=== PATIENT | female | born 1990 | race Native Hawaiian/Other Pacific Islander ===

== ENCOUNTER 2016-10-06 10:17 | Emergency (ER) | payer SELFPAY ==
--- NOTE | 2016-10-06 11:17 | PD ---
HPI Chief Complaint Contractions Date Seen: Oct 06, 2016 Travel History International Travel<30 Days: Yes (3 weeks ago to [place]) Contact w/Intl Traveler<30Days: [place] Country Traveled to: [facility] Known Affected Area: No History of Present Illness HPI Patient is a 25-year-old at 40/0 weeks gestation that presents to the [place] [facility] ED with a chief complaint of contractions that occur every 2 hours and last for 5-10 minutes each time. She denies loss of fluid, vaginal bleeding , abnormal vaginal discharge. She endorses positive movements. Patient states that she also has dysuria and developed a headache this morning on the right side of her face. [facility] All labs have been negative or within normal limits. Her blood pressure at clinic this morning was 145/86. Notably, her blood pressure in the ED today is within normal limits at 129/85. Patient is GBS negative. She prefers a female OB hospitalist due to her mostly in christianity. Para: 0 : 2 Miscarriage: 1 : 0 History Past Medical History Medical History: Denies Significant Hx Obstetric History Obstetric History - -1 miscarriage at 4 weeks Past Surgical History Surgical History: No Previous Surgery Family History Narrative Family History Mom has hypertension and diabetes Social History Alcohol Use: No Tobacco Use: No Substance Abuse: No Allergies-Medications (Allergen,Severity, Reaction): Coded Allergies: No Known Allergies (Unverified , 10/06/16) Home Meds No Active Prescriptions or Reported Meds Review of Systems General / Constitutional: No: Fever, Chills Eyes: No: Blurred Vision, Visual changes HENT: Headaches Cardiovascular: No: Chest Pain or Discomfort Respiratory: No: Short of Breath Gastrointestinal: No: Nausea, Vomiting, Diarrhea Genitourinary: No: Dysuria, Discharge, Vaginal Bleeding Musculoskeletal: Edema (minimal), No: Weakness Skin: No Rash Physical Exam Narrative GENERAL: Well-nourished, well-developed patient. SKIN: Warm and dry. HEAD: Normocephalic and atraumatic. EYES: No scleral icterus. No injection or drainage. ENT: No nasal drainage noted. Mucous membranes pink. Airway patent. NECK: Supple, trachea midline. No JVD. CARDIOVASCULAR: Regular rate and rhythm without murmurs, gallops, or rubs. RESPIRATORY: Breath sounds equal bilaterally. No accessory muscle use. BREASTS: Bilateral exam showed no masses , no retractions, no nipple discharge. ABDOMEN/GI: Abdomen soft, non-tender, bowel sounds present, no rebound, no guarding Gravid to 40 weeks size Fundal Height: 40cm GENITOURINARY: External Genitalia: intact and normal in appearance Cervix: Posterior Dilatation:2-3cm Effacement: 60% Station: -3 Presentation: Cephalic Membranes: Intact Uterine Contractions: Minimal, infrequent FHT's: Category: 1 Baseline: 145 Reactive: Yes, up to 150 Variability: Moderate Decels: None EXTREMITIES: No cyanosis or edema. BACK: Nontender without obvious deformity. No CVA tenderness. NEUROLOGICAL: Awake and alert. Motor and sensory grossly within normal limits. Five out of 5 muscle strength in all muscle groups. Normal speech. Data Data Vital Signs Reviewed: Yes Orders Vital Signs (Adult) .ON ADMISSION (10/06/16 10:57) ^ Labor Status (10/06/16 10:57) ^ Non Stress Test (10/06/16 10:57) ^ Hydration (10/06/16 10:57) Urinalysis - C+S If Indicated (10/06/16 11:13) MDM Medical Record Reviewed: Yes Interpretation(s) 25 at 40/0 presents with chief complaint of contractions, not in active labor. Plan Intrauterine -Cephalic position - tracing category 1, reassuring -Infrequent contractions on monitor -Plan is to discharge patient home -Labor precautions, patient to return to the ED when contractions are frequent -We will plan to induce on October 12 -Female OB hospitalist will be park recreation manager that day Diagnosis Diagnosis: Primary Impression: False labor after 37 weeks of gestation without delivery Disposition: DISCHARGE HOME Condition: Stable Scripts No Active Prescriptions or Reported Meds Shannon Maya MD R1 Oct 06, 2016 11:17
--- NOTE | 2016-10-06 11:34 | PD ---
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 [facility]. She denies bleeding or rupture the membranes heart rate tracing is reactive she is nish irregularly. Para: 0 : 2 History Social History Narrative Social History Patient is Catholic and does not want male examiners her delivery possible Alcohol Use: No Tobacco Use: No Substance Abuse: No Allergies-Medications (Allergen,Severity, Reaction): Coded Allergies: No Known Allergies (Unverified , 10/06/16) Home Meds No Active Prescriptions or Reported Meds Physical Exam Narrative GENERAL: Well-nourished, well-developed patient. SKIN: Warm and dry. HEAD: Normocephalic and atraumatic. EYES: No scleral icterus. No injection or drainage. ENT: No nasal drainage noted. Mucous membranes pink. Airway patent. NECK: Supple, trachea midline. No JVD. CARDIOVASCULAR: Regular rate and rhythm without murmurs, gallops, or rubs. RESPIRATORY: Breath sounds equal bilaterally. No accessory muscle use. BREASTS: Bilateral exam showed no masses , no retractions, no nipple discharge. ABDOMEN/GI: Abdomen soft, non-tender, bowel sounds present, no rebound, no guarding Gravid to [-38] weeks size Fundal Height: [38-] GENITOURINARY: External Genitalia: intact and normal in appearance BUS glands: [-] Cervix: [-] Dilatation: [-2-3 [no change] Effacement: [60-] Station: [-3] very high Presentation: [vtx by US today-] Membranes: [intact ] Uterine Contractions: [-irreg] FHT's: Category: [1-] Baseline: [-133] Reactive: [-yes] Variability: [mod-] Decels: [none-] EXTREMITIES: No cyanosis or edema. BACK: Nontender without obvious deformity. No CVA tenderness. NEUROLOGICAL: Awake and alert. Motor and sensory grossly within normal limits. Five out of 5 muscle strength in all muscle groups. Normal speech. Data Data Orders Vital Signs (Adult) .ON ADMISSION (10/06/16 10:57) ^ Labor Status (10/06/16 10:57) ^ Non Stress Test (10/06/16 10:57) ^ Hydration (10/06/16 10:57) Urinalysis - C+S If Indicated (10/06/16 11:13) MDM Interpretation(s) This patient is a 25-year-old Catholic female G 2 P0 at 40 wks EDC 10/06 who presents for evaluation contractions. The patient's nish irregularly heart rate tracing is reactive cervix is essentially unchanged from last week 2-3/ 60% and -3, vertex by ultrasound today. She is not in labor at this time will discharge home to return for worsening symptoms or signs. We'll schedule her induction for 1 week away and will schedule that with Dr. Webster female physician so that the patient will feel more comfortable Plan Plan to schedule patient for induction in 1 week with female physician she certainly can return sooner if labor ensues or she rupture the membranes has other complication. Diagnosis Diagnosis: Primary Impression: False labor after 37 weeks of gestation without delivery Disposition: 01 DISCHARGE HOME Condition: Stable Scripts No Active Prescriptions or Reported Meds Darvin Byrnes II, MD Oct 06, 2016 11:34
== END 2016-10-06 11:51 | disposition home or self-care (01) ==
LOC: HOBED 10:17
DX: O47.1 False labor at or after 37 completed weeks of gestation (principal); Z3A.40 40 weeks gestation of pregnancy
CPT/HCPCS: 99283

== ENCOUNTER 2016-10-12 07:12 | Inpatient (IN) | payer SELFPAY ==
[2016-10-12] VITALS (67 sets, daily range): BP systolic 98–158; BP diastolic 49–107; PULSE 66–119; RESP 18; TEMP 97.7–98.5; O2SAT 99–100
[2016-10-12] MEDS ORDERED: LIDOCAINE HCL 1% 50 ML VIAL I-DERMAL PRN (08:15)
[2016-10-12] MEDS ORDERED: CITRIC ACID-SODIUM CITRATE LIQ 30 ML UDC PO SCH (08:15)
[2016-10-12] MEDS ORDERED: LIDOCAINE HCL 1% 50 ML VIAL INFIL PRN (08:15)
[2016-10-12] MEDS ORDERED: MINERAL OIL 10 ML VIAL TOPICAL PRN (08:15)
--- NOTE | 2016-10-12 08:17 | HHI.HP ---
History & Physical H&P OB ED Note (Detail) Patient Name: Yodit Power Unit Number: [id number] Date of : 1990 Patient Status: Departed Emergency Room Attending Doctor: Darvin Byrnes II, MD HPI HPI Chief Complaint Contractions Date Seen: Oct 12, 2016 Travel History International Travel<30 Days: No Contact w/Intl Traveler<30Days: No Known Affected Area: No History of Present Illness HPI Labor And Delivery Registered Nurse 25-year-old Rastafari female at 40 weeks presents for postdates induction. [facility]. She denies bleeding or rupture the membranes heart rate tracing is reactive she is nish irregularly. Para: 0 : 2 History (Limited) History Social History Narrative Social History Patient is Rastafari and does not want male examiners her delivery Dr. goldstein Alcohol Use: No Tobacco Use: No Substance Abuse: No Allergies-Medications Allergies-Medications (Allergen,Severity, Reaction): Coded Allergies: No Known Allergies (Unverified , 10/06/16) Home Meds No Active Prescriptions or Reported Meds ROS Review of Systems Physical Exam Physical Exam Narrative GENERAL: Well-nourished, well-developed patient. SKIN: Warm and dry. HEAD: Normocephalic and atraumatic. EYES: No scleral icterus. No injection or drainage. ENT: No nasal drainage noted. Mucous membranes pink. Airway patent. NECK: Supple, trachea midline. No JVD. CARDIOVASCULAR: Regular rate and rhythm without murmurs, gallops, or rubs. RESPIRATORY: Breath sounds equal bilaterally. No accessory muscle use. BREASTS: Bilateral exam showed no masses , no retractions, no nipple discharge. ABDOMEN/GI: Abdomen soft, non-tender, bowel sounds present, no rebound, no guarding Gravid to [-38] weeks size Fundal Height: [38-] GENITOURINARY: External Genitalia: intact and normal in appearance BUS glands: [-] Cervix: [-] Dilatation: [-2-3 [no change] Effacement: [60-] Station: [-3] very high Presentation: [vtx by US today-] Membranes: [intact ] Uterine Contractions: [-irreg] FHT's: Category: [1-] Baseline: [-133] Reactive: [-yes] Variability: [mod-] Decels: [none-] EXTREMITIES: No cyanosis or edema. BACK: Nontender without obvious deformity. No CVA tenderness. NEUROLOGICAL: Awake and alert. Motor and sensory grossly within normal limits. Five out of 5 muscle strength in all muscle groups. Normal speech. Data Data Data Orders Vital Signs (Adult) .ON ADMISSION (10/06/16 10:57) ^ Labor Status (10/06/16 10:57) ^ Non Stress Test (10/06/16 10:57) ^ Hydration (10/06/16 10:57) Urinalysis - C+S If Indicated (10/06/16 11:13) MDM MDM Interpretation(s) This patient is a 25-year-old Rastafari female G 2 P0 at 41 wks tomorrow EDC 10/06 who presents for postdates induction. The patient's nish irregularly heart rate tracing is reactive cervix is essentially unchanged from last week 2-3/ 60% and -3, vertex by ultrasound today. She is not in labor at this time Plan Plan to schedule patient for induction with female physician Diagnosis Diagnosis: Primary Impression: Postdates 41 wks tomorrow Disposition: Admit for induction Condition: Stable Scripts No Active Prescriptions or Reported Meds Darvin Byrnes II, MD Oct 06, 2016 11:34 Darvin Byrnes II, MD Oct 12, 2016 08:17
[2016-10-12 08:20] LABS: AUTOMATED NEUTROPHIL # 5.3 TH/MM3 (1.8-7.7); BASOPHIL % 0.4 % (0.0-2.0); EOSINOPHIL # 0.1 TH/MM3 (0-0.4); EOSINOPHIL % 1.5 % (0.0-4.0); HEMATOCRIT 35.7 % (35.0-46.0); LYMPH % 22.6 % (9.0-44.0); LYMPHOCYTE # 1.7 TH/MM3 (1.0-4.8); MEAN CELL VOLUME 76.8 FL (80.0-100.0); MEAN CORPUSCULAR HEMOGLOBIN 24.5 PG (27.0-34.0); MEAN CORPUSCULAR HGB CONC 31.9 % (32.0-36.0); MONO % 6.1 % (0.0-8.0); NEUT % 69.4 % (16.0-70.0); PLATELET COUNT 105 TH/MM3 (150-450); RED BLOOD COUNT 4.65 MIL/MM3 (4.00-5.30); RED CELL DISTRIBUTION WIDTH 18.2 % (11.6-17.2); WHITE BLOOD COUNT 7.7 TH/MM3 (4.0-11.0)
[2016-10-12 08:23] LABS: HEMO FLAGS AUTO DIFF
[2016-10-12 08:31] LABS: BACTERIA, URINE OCC /hpf; BLOOD, URINE NEG (NEG); GLUCOSE,URINE NEG (NEG); KETONE, URINE NEG (NEG); MUCUS URINE FEW /lpf (OCC); NITRITE,URINE NEG (NEG); PH, URINE 5.5 (5.0-8.5); SQUAMOUS EPITHELIAL CELL URINE 26 /hpf (0-5); URINE COLOR YELLOW (YELLW/STRAW)
[2016-10-12 08:34] LABS: COMMENT (UR) CULT NOT INDICATED; CULTURE IF INDICATED CULT NOT INDICATED
--- NOTE | 2016-10-12 08:37 | HHI.HP ---
HPI Chief Complaint Induction for labor Date Seen: Oct 12, 2016 Travel History International Travel<30 Days: Yes (4 weeks ago to [facility]) Contact w/Intl Traveler<30Days: Yes Name of Country Traveled to: [facility] Known Affected Area: No History of Present Illness HPI Patient is a 25-year-old at 40/6 weeks gestation that presents to the [place] [facility] ED for a scheduled induction. Patient states that she has been having contractions for the last 3 days that became worse at 10 PM last night. The contractions have been coming every 10 minutes. She denies loss of fluid, vaginal bleeding, and endorses positive movement. [facility] with [facility]. All labs have been negative or within normal limits. Patient is GBS negative. She prefers a female OB hospitalist due to her Jainism mandaen. Patient is considering an epidural. Para: 0 : 2 Miscarriage: 1 : 0 History Past Medical History Medical History: Denies Significant Hx Obstetric History Obstetric History - -1 miscarriage at 4 weeks Past Surgical History Surgical History: No Previous Surgery Family History Narrative Family History Mom has hypertension and diabetes Social History Alcohol Use: No Tobacco Use: No Substance Abuse: No Allergies-Medications (Allergen,Severity, Reaction): Coded Allergies: No Known Allergies (Unverified , 10/06/16) Home Meds No Active Prescriptions or Reported Meds Review of Systems General / Constitutional: No: Fever, Chills Eyes: No: Blurred Vision, Visual changes HENT: No: Headaches, Lightheadedness Cardiovascular: No: Chest Pain or Discomfort Respiratory: No: Short of Breath Gastrointestinal: Nausea, No: Vomiting, Diarrhea Genitourinary: Dysuria Musculoskeletal: No: Weakness Skin: Rash (skin mottling) Neurologic: No: Weakness, Headache Physical Exam Narrative GENERAL: Well-nourished, well-developed patient. SKIN: Warm and dry. HEAD: Normocephalic and atraumatic. EYES: No scleral icterus. No injection or drainage. ENT: No nasal drainage noted. Mucous membranes pink. Airway patent. NECK: Supple, trachea midline. No JVD. CARDIOVASCULAR: Regular rate and rhythm without murmurs, gallops, or rubs. RESPIRATORY: Breath sounds equal bilaterally. No accessory muscle use. ABDOMEN/GI: Abdomen soft, non-tender, bowel sounds present, no rebound, no guarding Gravid to 41 weeks size GENITOURINARY: External Genitalia: intact and normal in appearance Cervix: Posterior Dilatation: 3cm Effacement: 70% Station: -3 Presentation: Cephalic Membranes: intact Uterine Contractions: present but infrequent FHT's: Category: I Baseline: 120 Reactive: Yes, up to 145 Variability: Moderate Decels: None EXTREMITIES: No cyanosis or edema. BACK: Nontender without obvious deformity. No CVA tenderness. NEUROLOGICAL: Awake and alert. Motor and sensory grossly within normal limits. Five out of 5 muscle strength in all muscle groups. Normal speech. Data Data Vital Signs Reviewed: Yes Orders Admit To Inpatient (10/12/16 ) Vital Signs (Adult) .Per protocol (10/12/16 08:11) Heart (10/12/16 08:11) Amnioinfusion (10/12/16 08:11) Urinary Catheter Management .ONCE (10/12/16 08:11) Diet Liquid (10/12/16 Breakfast) Lactated Ringer's 1000 Ml Inj (Lr 1000 M (10/12/16 08:11) Lactated Ringer's 1000 Ml Inj (Lr 1000 M (10/12/16 08:11) Sodium Chlorid 0.9% 500 Ml Inj (Ns 500 M (10/12/16 08:15) Sodium Chlor 0.9% 1000 Ml Inj (Ns 1000 M (10/12/16 08:31) Lidocaine 1% Inj (50 Ml) (Xylocaine 1% I (10/12/16 08:15) Citric Acid-Sodium Citrate Liq (Bicitra (10/12/16 08:15) Fentanyl Inj (Fentanyl Inj) (10/12/16 08:15) Fentanyl Inj (Fentanyl Inj) (10/12/16 08:15) Complete Blood Count With Diff (10/12/16 08:11) Hold Clot (10/12/16 08:11) Abo/Rh Blood Type (10/12/16 08:11) Urinalysis - C+S If Indicated (10/12/16 08:11) Resp Oxygen Non Rebreathe Mask (10/12/16 ) ^ Epidural / Intrathecal Infus (10/12/16 08:11) Oxytocin 30 Units-500ml Premix (Pitocin (10/12/16 08:15) Lidocaine 1% Inj (50 Ml) (Xylocaine 1% I (10/12/16 08:15) Light Mineral Oil (Muri-Lube Oil) (10/12/16 08:15) Specimen To Be Collected PRN (10/12/16 08:11) ^ Non Stress Test (10/12/16 08:12) Response To Medication .Post New Med Administration, Reaction (10/12/16 08:12) ^ Discontinue Medication (10/12/16 08:12) Oxytocin 30 Units-500ml Premix (Pitocin (10/12/16 08:15) Labs Laboratory Tests Test 10/12/16 08:00 White Blood Count 7.7 Red Blood Count 4.65 Hemoglobin 11.4 Hematocrit 35.7 Mean Corpuscular Volume 76.8 Mean Corpuscular Hemoglobin 24.5 Mean Corpuscular Hemoglobin 31.9 Concent Red Cell Distribution Width 18.2 Platelet Count 105 Mean Platelet Volume 11.7 Neutrophils (%) (Auto) 69.4 Lymphocytes (%) (Auto) 22.6 Monocytes (%) (Auto) 6.1 Eosinophils (%) (Auto) 1.5 Basophils (%) (Auto) 0.4 Neutrophils # (Auto) 5.3 Lymphocytes # (Auto) 1.7 Monocytes # (Auto) 0.5 Eosinophils # (Auto) 0.1 Basophils # (Auto) 0.0 CBC Comment AUTO DIFF Assessment/Plan Assessment and Plan 25-year-old at 40/6 weeks gestation presents for induction of labor, currently having contractions. GBS negative Intrauterine - tracing category 1 - reassuring -Cervical exam: 3 cm/70%/-3 -Admit for induction -Start Pitocin -Continuous tracing -Continue routine antepartum care -Expect vaginal delivery Discharge Planning Depending on labor course, in the next 2-3 days EkoShannon MD R1 Oct 12, 2016 08:37
[2016-10-12 08:52] LABS: PLATELET ESTIMATE SMEAR LOW (NORMAL); PLATELET MORPHOLOGY ENLARGED (NORMAL); SCAN/DIFF AUTO DIFF CONFIRMED
[2016-10-12] MEDS ORDERED: LACTATED RINGER'S 1000 ML INJ 1,000 ML IV SCH (09:00)
[2016-10-12] MEDS ORDERED: OXYTOCIN 30 UNITS-500ML PREMIX 500 ML IV SCH (09:00)
[2016-10-12] MEDS ORDERED: LACTATED RINGER'S 1000 ML INJ 1,000 ML IV PRN (09:00)
[2016-10-12] MEDS ORDERED: SODIUM CHLORID 0.9% 500 ML INJ 500 ML IV PRN (09:00)
[2016-10-12] MEDS ORDERED: SODIUM CHLOR 0.9% 1000 ML INJ 1,000 ML IV PRN (09:00)
[2016-10-12] MEDS ORDERED: OXYTOCIN 30 UNITS-500ML PREMIX 500 ML IV ONE (09:00)
[2016-10-12] MEDS ORDERED: fentaNYL 2MCG-BUPIV 0.125% INJ 100 ML ONE ×2 (12:25→19:47)
[2016-10-12] MEDS ORDERED: ePHEDrine/NS 25 MG/5 ML SYR ONE (13:23)
--- NOTE | 2016-10-12 15:06 | PD.LABORPN ---
Subjective Subjective 25 @40/6 weeks. Doing well. AROM performed. (Eko,Shannon U R1) Objective Vital Signs Vital Signs Date Time Temp Pulse Resp B/P Pulse Ox O2 Delivery O2 Flow Rate FiO2 10/12/16 14:30 103 118/74 10/12/16 14:15 113 108/69 10/12/16 14:00 119 108/52 10/12/16 13:45 92 109/63 10/12/16 13:30 96 119/65 10/12/16 13:26 66 123/68 10/12/16 13:25 87 99 10/12/16 13:24 96 118/53 10/12/16 13:21 97 115/49 10/12/16 13:20 109 100 10/12/16 13:19 101 111/63 10/12/16 13:16 107 114/61 10/12/16 13:15 100 100 10/12/16 13:13 90 127/71 10/12/16 13:10 92 10/12/16 13:10 97.7 89 133/70 100 10/12/16 13:10 18 10/12/16 13:07 89 137/84 10/12/16 13:05 82 100 10/12/16 13:02 91 143/91 10/12/16 13:00 84 10/12/16 13:00 99 10/12/16 13:00 89 142/90 10/12/16 12:35 87 147/93 10/12/16 12:31 75 158/107 10/12/16 12:00 76 144/94 10/12/16 11:50 73 145/100 10/12/16 11:30 71 138/94 10/12/16 11:15 80 145/87 10/12/16 11:01 77 144/89 10/12/16 10:30 85 124/93 10/12/16 10:15 74 139/90 10/12/16 10:04 73 134/87 10/12/16 10:00 74 129/98 10/12/16 09:46 79 136/93 10/12/16 09:19 77 133/90 10/12/16 09:05 86 135/81 Objective Pelvic Exam: Cervix: mid position Dilatation: 4cm Effacement: 90% Station: -1 Presentation: vertex Membranes: ruptured Uterine Contractions: moderate , Q2-3 mins FHT's: Category: II Baseline: 130 Reactive: up to 150 Variability: Moderate Decels: 1-2 lates (Shannon Maya MD R1) Assessment/Plan Problem List: (1) Post term over 40 weeks Assessment and Plan Intrauterine -Doing well - tracing - 1-2 late decels, baseline 130, reactive up to 150 -On Pitocin at 18- contractions Q2-3 minutes - will shut off for 20 minutes and restart low -Fluid bolus and repositioning performed -Continue to monitor -Cervical exam: 4cm/90%/-1 -AROM performed -IUPC placed -Epidural in place -Continue antepartum care -Expect vaginal delivery (Shannon Maya MD R1) Assessment and Plan Pt seen and examined with resident AROM, scant clear fluid, IUPC placed cat 2 tracing, monitor closely (Yandel Sánchez MD) Shannon Maya MD R1 Oct 12, 2016 15:06 Yandel Sánchez MD Oct 12, 2016 15:31
[2016-10-13] VITALS (17 sets, daily range): BP systolic 119–144; BP diastolic 65–93; PULSE 83–116; RESP 18–20; TEMP 98.1–99.1
--- NOTE | 2016-10-13 02:42 | PD.OB.DELI ---
Delivery Date: Oct 13, 2016 Anesthesia: Epidural Episiotomy: None Vaginal Delivery: Normal Presentation: Other (JAILYN) Nuchal Cord: None Delayed cord clamping (45 sec): Yes Infant: Male One Minute : 8 Five Minute : 9 Weight: 3520 Placenta: Spontaneous delivery Laceration: Perineal laceration, 2 deg Additional Information EBL 300 Yandel Sánchez MD Oct 13, 2016 02:42
[2016-10-13] MEDS ORDERED: ALUMINUM/MAGNESIUM/SIMETH 30 ML CUP PO PRN (02:45)
[2016-10-13] MEDS ORDERED: ONDANSETRON ODT 4 MG TAB PO PRN (02:45)
[2016-10-13] MEDS ORDERED: DOCUSATE SODIUM 50 MG/SENNA 8.6 MG TAB PO PRN (02:45)
[2016-10-13] MEDS ORDERED: ACETAMINOPHEN 325 MG TAB PO PRN (02:45)
[2016-10-13] MEDS ORDERED: SODIUM CHLORIDE 0.9% FLUSH 10 ML FLUSH IV FLUSH PRN (02:45)
[2016-10-13] MEDS ORDERED: ZOLPIDEM TARTRATE 5 MG TAB PO PRN (02:45)
[2016-10-13] MEDS ORDERED: OXYTOCIN 30 UNITS-500ML PREMIX 500 ML ONE (02:54)
[2016-10-13] MEDS: WITCH HAZEL 50%/GLYCERIN 12.5% 40 PAD JAR TOPICAL PRN (05:57)
[2016-10-13] MEDS: BENZOCAINE 20% TOPICAL SPRAY 60 ML CAN TOPICAL PRN (05:57)
--- NOTE | 2016-10-13 07:18 | HHI.OB ---
Subjective Post Day: 0 Remarks day #0. AFVSS overnight. Pain well-controlled. Lochia more than a period. Denies dysuria. She is feeding the baby via by breast milk. Appetite good. No nausea or vomiting. Positive flatus. No bowel movement. Ambulating well. Denies calf pain, shortness of breath, or cough. Otherwise, she is doing well this morning and has no other complaints. (Eko,Shannon U R1 ) Objective Vitals/I&O Vital Signs Date Time Temp Pulse Resp B/P Pulse Ox O2 Delivery O2 Flow Rate FiO2 10/13/16 03:41 113 136/79 10/13/16 03:40 18 10/13/16 03:24 105 144/93 10/13/16 03:23 18 10/13/16 03:06 110 133/65 10/13/16 03:05 18 10/13/16 02:51 108 120/83 10/13/16 02:50 18 10/13/16 02:38 18 10/13/16 02:37 116 119/78 10/13/16 01:49 89 10/13/16 01:49 119/74 10/13/16 01:48 18 10/13/16 01:12 99.1 10/13/16 00:40 18 10/13/16 00:40 83 127/78 10/12/16 23:57 87 120/71 10/12/16 23:55 18 10/12/16 23:01 98 18 135/78 10/12/16 22:41 93 129/83 10/12/16 22:40 18 10/12/16 22:13 18 10/12/16 22:12 95 126/81 10/12/16 21:41 102 131/79 10/12/16 21:40 18 10/12/16 21:18 90 18 134/78 10/12/16 20:56 83 128/76 10/12/16 20:55 98.5 18 10/12/16 20:20 91 128/80 10/12/16 20:20 18 10/12/16 19:53 84 18 124/79 10/12/16 19:20 95 109/84 10/12/16 19:19 97.8 18 10/12/16 18:46 91 113/61 10/12/16 18:31 76 125/78 10/12/16 18:15 89 122/77 10/12/16 18:00 90 107/71 10/12/16 17:45 78 116/70 10/12/16 17:30 79 98/65 10/12/16 17:16 72 109/66 10/12/16 17:01 85 108/51 10/12/16 17:00 97.7 18 10/12/16 16:46 73 99/52 10/12/16 16:31 75 106/52 10/12/16 16:16 66 100/55 10/12/16 16:01 73 120/77 10/12/16 15:46 73 127/75 10/12/16 15:31 74 117/81 10/12/16 15:16 85 110/67 10/12/16 15:01 86 112/61 10/12/16 14:40 88 120/71 10/12/16 14:30 103 118/74 10/12/16 14:15 113 108/69 10/12/16 14:00 119 108/52 10/12/16 13:45 92 109/63 10/12/16 13:30 96 119/65 10/12/16 13:26 66 123/68 10/12/16 13:25 87 99 10/12/16 13:24 96 118/53 10/12/16 13:21 97 115/49 10/12/16 13:20 109 100 10/12/16 13:19 101 111/63 10/12/16 13:16 107 114/61 10/12/16 13:15 100 100 10/12/16 13:13 90 127/71 10/12/16 13:10 92 10/12/16 13:10 97.7 89 133/70 100 10/12/16 13:10 18 10/12/16 13:07 89 137/84 10/12/16 13:05 82 100 10/12/16 13:02 91 143/91 10/12/16 13:00 84 10/12/16 13:00 99 10/12/16 13:00 89 142/90 10/12/16 12:35 87 147/93 10/12/16 12:31 75 158/107 10/12/16 12:00 76 144/94 10/12/16 11:50 73 145/100 10/12/16 11:30 71 138/94 10/12/16 11:15 80 145/87 10/12/16 11:01 77 144/89 10/12/16 10:30 85 124/93 10/12/16 10:15 74 139/90 10/12/16 10:04 73 134/87 10/12/16 10:00 74 129/98 10/12/16 09:46 79 136/93 10/12/16 09:19 77 133/90 10/12/16 09:05 86 135/81 Objective Remarks GENERAL: Well-nourished, well-developed patient. CARDIOVASCULAR: Regular rate and rhythm without murmurs, gallops, or rubs. RESPIRATORY: Breath sounds equal bilaterally. No accessory muscle use. ABDOMEN/GI: Abdomen soft, non-tender. Fundus: Firm, non-tender at umbilicus. GENITOURINARY: Light to moderate bleeding. EXTREMITIES: No cyanosis or edema, non-tender, without signs of DVT. Medications and IVs Current Medications Medications (Trade) Dose Ordered Sig/Matias Route Start Time Stop Time Status Last Admin (NS Flush) 2 ml BID IV FLUSH 10/13/16 09:00 (NS Flush) 2 ml UNSCH PRN IV FLUSH 10/13/16 02:45 (Tylenol) 650 mg Q4H PRN PO 10/13/16 02:45 (Motrin) 600 mg Q6H PRN PO 10/13/16 02:45 (Percocet 5-325 Mg) 1 tab Q4H PRN PO 10/13/16 02:45 (Percocet 5-325 Mg) 2 tab Q4H PRN PO 10/13/16 02:45 (Americaine 20% Top Spr) 1 spray Q4H PRN TOPICAL 10/13/16 02:45 10/13/16 05:57 (Tucks Pads) 1 applic QID PRN TOPICAL 10/13/16 02:45 10/13/16 05:57 (Vanessa-Colace) 2 tab Q12H PRN PO 10/13/16 02:45 (Ambien) 5 mg HS PRN PO 10/13/16 02:45 (M-M-R Ii Inj) 0.5 ml ONCE ONCE SQ 10/13/16 16:00 10/13/16 16:01 (Boostrix Inj) 0.5 ml ONCE ONCE IM 10/13/16 16:00 10/13/16 16:01 (Mag-Al Plus Susp Liq) 15 ml Q8H PRN PO 10/13/16 02:45 (Zofran Odt) 4 mg Q6H PRN PO 10/13/16 02:45 (Shannon Maya MD R1) Assessment/Plan Problem List: (1) Post term over 40 weeks Assessment and Plan 25-year-old who is PPD0 s/p induced vaginal delivery -Continue routine care -Motrin PRN for pain -Pericolase PRN for constipation -Encouraged OOB. Advised pelvic rest for 6 wks -Will need a follow-up appointment within 6 wks -Re: ctrl - patient is undecided -D/c in 1-[address] Sánchez Discharge Planning Anticipate discharge in 1-2 days (Shannon Maya MD R1) Attending Attestation The exam, history, and the medical decision-making described in the above note were completed with the assistance of the resident provider. I reviewed and agree with the findings presented. I attest that I had a [id number] encounter with the patient on the same day, and personally performed and documented my assessment and findings in the medical record. (Yandel Sánchez MD) Shannon Maya MD R1 Oct 13, 2016 07:18 Yandel Sánchez MD Oct 13, 2016 11:10
[2016-10-13] MEDS ORDERED: SODIUM CHLORIDE 0.9% FLUSH 10 ML FLUSH IV FLUSH SCH (09:00)
[2016-10-13] MEDS: oxyCODONE/ACETAMINOPHEN 5 MG/325 MG TAB PO PRN ×2 (11:27→17:43)
[2016-10-13] MEDS: IBUPROFEN 600 MG TAB PO PRN ×2 (11:28→17:43)
[2016-10-13] MEDS ORDERED: DIPHTH/TETANUS/ACEL PERTUSSIS (BOOSTER) 0.5 ML VIAL/PFS IM ONE (16:00)
[2016-10-13] MEDS ORDERED: MEASLES, MUMPS, RUBELLA VACCINE 0.5 ML VIAL SQ ONE (16:00)
[2016-10-14 08:00] VITALS: BP 86/66; PULSE 79; RESP 18; TEMP 98.2
[2016-10-14] MEDS ORDERED: diphenhydrAMINE HCL 25 MG CAP PO PRN (08:45)
[2016-10-14] MEDS ORDERED: diphenhydrAMINE HCL 25 MG CAP PO ONE (08:45)
[2016-10-14] MEDS: oxyCODONE/ACETAMINOPHEN 5 MG/325 MG TAB PO PRN (09:32)
[2016-10-14] MEDS: IBUPROFEN 600 MG TAB PO PRN (09:32)
--- NOTE | 2016-10-14 10:14 | HHI.OB ---
Subjective Post Day: 1 Remarks 25 year old female s/p induced vaginal delivery due to postdates at 41/0 wks gestation, PPD 1. AFVSS the patient is intermittently tachycardic. Patient reports she is feeling well. Bleeding is decreasing and pain is well-controlled but does complain of back pain. She also complains of generalized pruritus that has been present 1 week. She is formula feeding and bonding well with baby. Ambulating without difficulties. She is tolerating a diet without nausea or vomiting. She has not had a bowel movement. She has passed gas. Denies chest pain, dysuria, shortness of breath, or calf pain. (Annamarie Watson MD R2) Remarks Patient seen and evaluated with resident under direct supervision, agree with assessment and plan. (Mikal Toledo MD) Objective Vitals/I&O Vital Signs Date Time Temp Pulse Resp B/P Pulse Ox O2 Delivery O2 Flow Rate FiO2 10/13/16 19:50 98.1 97 19 126/69 Objective Remarks GENERAL: Well-nourished, well-developed patient. SKIN: diffuse macular-papular rash with excoriations. CARDIOVASCULAR: Regular rate and rhythm without murmurs, gallops, or rubs. RESPIRATORY: Breath sounds equal bilaterally. No accessory muscle use. ABDOMEN/GI: Abdomen soft, non-tender. Fundus: Firm, non-tender at umbilicus. GENITOURINARY: Light to moderate bleeding. EXTREMITIES: No cyanosis or edema, non-tender, without signs of DVT. Medications and IVs Current Medications Medications (Trade) Dose Ordered Sig/Matias Route Start Time Stop Time Status Last Admin (NS Flush) 2 ml BID IV FLUSH 10/13/16 09:00 (NS Flush) 2 ml UNSCH PRN IV FLUSH 10/13/16 02:45 (Tylenol) 650 mg Q4H PRN PO 10/13/16 02:45 (Motrin) 600 mg Q6H PRN PO 10/13/16 02:45 10/14/16 09:32 (Percocet 5-325 Mg) 1 tab Q4H PRN PO 10/13/16 02:45 10/13/16 17:43 (Percocet 5-325 Mg) 2 tab Q4H PRN PO 10/13/16 02:45 10/14/16 09:32 (Americaine 20% Top Spr) 1 spray Q4H PRN TOPICAL 10/13/16 02:45 10/13/16 05:57 (Tucks Pads) 1 applic QID PRN TOPICAL 10/13/16 02:45 10/13/16 05:57 (Vanessa-Colace) 2 tab Q12H PRN PO 10/13/16 02:45 (Ambien) 5 mg HS PRN PO 10/13/16 02:45 (Mag-Al Plus Susp Liq) 15 ml Q8H PRN PO 10/13/16 02:45 (Zofran Odt) 4 mg Q6H PRN PO 10/13/16 02:45 (Benadryl) 25 mg Q4H PRN PO 10/14/16 08:45 (Annamarie Watson MD R2) Assessment/Plan Problem List: (1) Post term over 40 weeks Assessment and Plan 25-year-old who is PPD1 s/p induced vaginal delivery -Continue routine care * Benadryl for diffuse rash or pruritus -Motrin and Percocet PRN for pain -Pericolase PRN for constipation -Encouraged OOB. Advised pelvic rest for 6 wks -Will need a follow-up appointment within 6 wks with [facility] * Patient intends to fly to [facility] within next few weeks. 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
[2016-10-14] MEDS ORDERED: IBUP-232 PO (10:16)
--- NOTE | 2016-10-14 10:16 | HHI.DCPOC ---
Discharge Care Plan Diagnosis: (1) Post term over 40 weeks (2) Vaginal delivery Report Symptoms to Your Doctor -Temperate above 100.5 degrees -Redness, of incision or excessive or foul smelling drainage -Unusual pain or calf pain -Increased vaginal bleeding -Painful or difficulty urinating -Feelings of extreme sadness or anxiety after 2 weeks Goals to Promote Your Health * To prevent worsening of your condition and complications * To maintain your health at the optimal level Directions to Meet Your Goals Take your medications as prescribed Follow your dietary instruction Follow activity as directed Ensure plenty of rest for recovery Drink fluids for hydration Keep your appointments as scheduled Take your immunizations and boosters as scheduled If your symptoms worsen call your PCP, if no PCP go to Urgent Care Center or Emergency Room Smoking is Dangerous to Your Health. Avoid second hand smoke Call the 24-hour crisis hotline for domestic abuse at Annamarie Watson MD R2 Oct 14, 2016 10:16
[2016-10-15] MEDS: IBUPROFEN 600 MG TAB PO PRN ×2 (02:49→09:35)
[2016-10-15] MEDS: oxyCODONE/ACETAMINOPHEN 5 MG/325 MG TAB PO PRN ×2 (02:49→09:35)
[2016-10-15] MEDS ORDERED: BENZOCAINE 20% TOPICAL (07:10)
--- NOTE | 2016-10-15 07:12 | HHI.OB ---
Subjective Post Day: 2 Remarks 25 year old female s/p induced vaginal delivery due to postdates at 41/0 wks gestation, PPD 2. AFVSS. Patient reports she is feeling well. Bleeding is decreasing and pain is well-controlled but does continue to complain of back pain. She is formula feeding and bonding well with baby. Ambulating without difficulties. She is tolerating a diet without nausea or vomiting. Endorses mild dysuria but spray does help. Denies chest pain, shortness of breath, or calf pain. Objective Vitals/I&O Vital Signs Date Time Temp Pulse Resp B/P Pulse Ox O2 Delivery O2 Flow Rate FiO2 10/14/16 08:00 98.2 79 18 86/66 Objective Remarks GENERAL: Well-nourished, well-developed patient. CARDIOVASCULAR: Regular rate and rhythm without murmurs, gallops, or rubs. RESPIRATORY: Breath sounds equal bilaterally. No accessory muscle use. ABDOMEN/GI: Abdomen soft, non-tender. Fundus: Firm, non-tender at umbilicus. GENITOURINARY: Light to moderate bleeding. EXTREMITIES: No cyanosis or edema, non-tender, without signs of DVT. Medications and IVs Current Medications Medications (Trade) Dose Ordered Sig/Matias Route Start Time Stop Time Status Last Admin (NS Flush) 2 ml BID IV FLUSH 10/13/16 09:00 (NS Flush) 2 ml UNSCH PRN IV FLUSH 10/13/16 02:45 (Tylenol) 650 mg Q4H PRN PO 10/13/16 02:45 (Motrin) 600 mg Q6H PRN PO 10/13/16 02:45 10/15/16 02:49 (Percocet 5-325 Mg) 1 tab Q4H PRN PO 10/13/16 02:45 10/15/16 02:49 (Percocet 5-325 Mg) 2 tab Q4H PRN PO 10/13/16 02:45 10/14/16 09:32 (Americaine 20% Top Spr) 1 spray Q4H PRN TOPICAL 10/13/16 02:45 10/13/16 05:57 (Tucks Pads) 1 applic QID PRN TOPICAL 10/13/16 02:45 10/13/16 05:57 (Vanessa-Colace) 2 tab Q12H PRN PO 10/13/16 02:45 (Ambien) 5 mg HS PRN PO 10/13/16 02:45 (Mag-Al Plus Susp Liq) 15 ml Q8H PRN PO 10/13/16 02:45 (Zofran Odt) 4 mg Q6H PRN PO 10/13/16 02:45 (Benadryl) 25 mg Q4H PRN PO 10/14/16 08:45 Assessment/Plan Problem List: (1) Post term over 40 weeks Assessment and Plan 25-year-old who is PPD2 s/p induced vaginal delivery -Continue routine care -Motrin and Percocet PRN for pain -Pericolase PRN for constipation -Encouraged OOB. Advised pelvic rest for 6 wks -Will need a follow-up appointment within 6 wks with [facility] * Patient intends to fly to [facility] within next few weeks. Counseled about clearance with primary CALF SKINNER and the risk for DVT/PE -Re: ctrl - patient is undecided. Wants to discuss with mother -D/c today Discussed with Annamarie Wilkes MD R2 Oct 15, 2016 07:12 Annamarie Watson MD R2 Oct 15, 2016 07:12
[2016-10-15] MEDS: BENZOCAINE 20% TOPICAL SPRAY 60 ML CAN TOPICAL PRN (09:34)
[2016-10-15] MEDS: WITCH HAZEL 50%/GLYCERIN 12.5% 40 PAD JAR TOPICAL PRN (09:35)
== END 2016-10-15 11:42 | disposition home or self-care (01) | DRG 775 ==
LOC: H2EA 07:12 → H1EA 10-13 04:54
PROVIDERS: ADMIT Obstetrics & Gynecology Maternal & Fetal Medicine; ATTEND Obstetrics & Gynecology Maternal & Fetal Medicine
PROC: 10E0XZZ Delivery of Products of Conception, External Approach (ICD-10-PCS; principal; 2016-10-12)
PROC: 0KQM0ZZ Repair Perineum Muscle, Open Approach (ICD-10-PCS; 2016-10-12)
PROC: 10907ZC Drainage of Amniotic Fluid, Therapeutic from Products of Conception, Via Natural or Artificial Opening (ICD-10-PCS; 2016-10-12)
PROC: 3E033VJ Introduction of Other Hormone into Peripheral Vein, Percutaneous Approach (ICD-10-PCS; 2016-10-12)
DX: O48.0 Post-term pregnancy (principal); O70.1 Second degree perineal laceration during delivery; Z37.0 Single live birth; Z3A.41 41 weeks gestation of pregnancy; L29.9 Pruritus, unspecified; R21 Rash and other nonspecific skin eruption; R00.0 Tachycardia, unspecified
CPT/HCPCS: 59025; 81001; 85025; 86900; 86901; J2590; J7120